=== PATIENT | female | born 1955 | race Caucasian/White ===

== ENCOUNTER 2020-02-20 12:45 | Emergency (ER) | payer MEDICARE ==
[~2020-02-20] VITALS: Ht 160 cm; Wt 88.2 kg
[~2020-02-20 12:45] MED LIST: ALBU2.5V5 IH; ALBU2.5V8 IH; ALPR0.5T PO; AMLO5TAB10 PO; ASPI-630 PO; ASPI81TA59 PO; ATOR20TA58 PO; BENZ-8 PO; CLON-276 PO; DICL100G18 TP; DILT180C29 PO; DILT300C23 PO; DULO60CA98 PO; FERR325T14 PO; FLUC100T7 PO; FLUT1DIS5 IH; FLUT9.9S NS; FOLI0.8T21 PO; FURO-68 PO; FURO40TA4 PO; FURO80TA3 PO; FURO80TA72 PO; GABA-586 PO; HYDR-2765 PO; HYDR-2769 PO; HYDR100T24 PO; INSU100I13 SQ; INSU100I17 SQ; IPRA3AMP29 IH; LIDO700A4 TP; LINA5TAB4 PO; LISI-338 PO; LORA10TA3 PO; METF100010 PO; METF500T16 PO; MORP-16 PO; NYST1000 TP; NYST60PO TP; OMEP20TA8 PO; PANT40TA6 PO; PHEN-318 PO; POLY17PO5 PO; POTA20TA12 PO; POTA40LI3 PO; PRED1TAB PO; PRED2.5T PO; QUET25TA5 PO; VALS160T3 PO; VANC1VIA3 MC; VANC2PLA IV; WARF2.5T2 PO; WARF5TAB2 PO; ZOLP10TA PO; ZOLP5TAB PO
[2020-02-20] MEDS ORDERED: IV NORMAL SALINE 1,000ML 1,000 ML IV SCH (12:48)
--- NOTE | 2020-02-20 12:53 | PHYS DOC ---
Past History Past Medical History: A-Fib, Anxiety, CHF, Constipation, COPD, Diabetes, GERD, Renal Disease, Other Past Surgical History: Cholecystectomy, Hysterectomy, Other Alcohol Use: None Drug Use: None Adult General Chief Complaint Chief Complaint: NEAR SYCOPE HPI HPI Patient is a 65-year-old female who presents for generalized malaise via EMS. Onset was within past 24 hours without any known travel, sick contact, concerning ingestion and/or trauma. noticed patient was more weak and lethargic than usual which concerned him prompting him to call EMS. On arrival to the scene, patient reported to EMS that she has had several episodes of vomiting and diarrhea in the past 48 hours with x1 episode this morning that had bright red blood in toilet. Patient was found to be hypotensive ~80/50s with remaining vitals unremarkable. IV access was obtained, 1 L normal saline bolus was initiated and patient was transported to our facility for further care. Of note, patient had similar presentation to this in 2016, with subsequently septic due to colitis and transferred to [facility], was subsequently intubated and coded. She remains a full code at this time Review of Systems Review of Systems Fourteen body systems of review of systems have been reviewed. See HPI for pertinent positives and negative responses, other hawkins all other systems are negative, non-pertinent or non-contributory Current Medications Current Medications Current Medications Medications (Trade) Dose Ordered Sig/Jake Start Time Stop Time Status Last Admin Dose Admin Sodium Chloride 1,000 ml @ 1,000 mls/hr Q1H 02/20/20 12:48 02/20/20 13:47 UNV Allergies Allergies Allergies Coded Allergies Type Severity Reaction Last Updated Verified Sulfa (Sulfonamide Antibiotics) Allergy Intermediate Hives 09/22/13 Yes exenatide Allergy Intermediate Hives 09/22/13 Yes meperidine Allergy Intermediate Nausea and Vomiting 09/22/13 Yes nickel Allergy Intermediate Hives 09/22/13 Yes Physical Exam Physical Exam Constitutional: Pt is oriented to person, place, and time. Pt appears well- developed and well-nourished. GCS 14 HENT: Head: Normocephalic and atraumatic. Mouth/Throat: Oropharynx is clear and moist. No hematomas or lacerations or abrasions to face or scalp OP clear, no blood, no malocclusion, dentition intact Nares clear, no nasal septal hematoma TMs clear, no hemotympanum Midface stable Eyes: Conjunctivae and EOM are normal. Pupils are equal, round, and reactive to light. Neck: C-spine midline nontender, no step-offs Cardiovascular: Normal rate, regular rhythm and normal heart sounds. Pulmonary/Chest: Effort normal and breath sounds normal. No respiratory distress. No wheezes. CTA bilaterally Abdominal: Soft. Bowel sounds are normal. Pt exhibits no distension. There is generalized tenderness, guarding present, no rebound, no peritoneal signs, nonacute/nonsurgical abdomen Musculoskeletal: No bony tenderness to extremities, no deformities, full ROM extremities Chest wall stable Pelvis stable and non-tender Rectal exam performed, anal sphincter intact, no external hemorrhoids, no palpable abnormalities in rectal vault, Hemoccult positive No vertebral TTP and spine without stepoffs Neurological: Pt is alert and oriented to person, place, and time. Moving all extremities willfully, able to wiggle all fingers and toes Alert and oriented x 3 but lethargic Sensation grossly intact Skin: Skin is warm and cool. No abrasions, no lacerations Psychiatric: Behavior is appropriate for situation Nursing note and vitals reviewed. Current Patient Data Vital Signs Vital Signs Date Time Temp Pulse Resp B/P (MAP) Pulse Ox O2 Delivery O2 Flow Rate FiO2 02/20/20 17:42 56 20 164/75 (104) 99 Nasal Cannula 2.0 02/20/20 16:28 98.0 Lab Results Laboratory Tests Test 02/20/20 13:00 02/20/20 13:23 02/20/20 14:13 02/20/20 16:00 White Blood Count 14.4 x10^3/uL (4.0-11.0) Red Blood Count 4.60 x10^6/uL (3.50-5.40) Hemoglobin 14.8 g/dL (12.0-15.5) Hematocrit 44.3 % (36.0-47.0) Mean Corpuscular Volume 96 fL (79-100) Mean Corpuscular Hemoglobin 32 pg (25-35) Mean Corpuscular Hemoglobin Concent 34 g/dL (31-37) Red Cell Distribution Width 13.2 % (11.5-14.5) Platelet Count 195 x10^3/uL (140-400) Neutrophils (%) (Auto) 78 % (31-73) Lymphocytes (%) (Auto) 16 % (24-48) Monocytes (%) (Auto) 5 % (0-9) Eosinophils (%) (Auto) 1 % (0-3) Basophils (%) (Auto) 0 % (0-3) Neutrophils # (Auto) 11.3 x10^3uL (1.8-7.7) Lymphocytes # (Auto) 2.3 x10^3/uL (1.0-4.8) Monocytes # (Auto) 0.7 x10^3/uL (0.0-1.1) Eosinophils # (Auto) 0.1 x10^3/uL (0.0-0.7) Basophils # (Auto) 0.1 x10^3/uL (0.0-0.2) Prothrombin Time 9.9 SEC (9.4-11.4) Prothromb Time International Ratio 1.0 (0.9-1.1) Activated Partial Thromboplast Time 23 SEC (23-33) Sodium Level 139 mmol/L (136-145) Potassium Level 3.8 mmol/L (3.5-5.1) Chloride Level 104 mmol/L (98-107) Carbon Dioxide Level 23 mmol/L (21-32) Anion Gap 12 (6-14) Blood Urea Nitrogen 22 mg/dL (7-20) Creatinine 1.3 mg/dL (0.6-1.0) Estimated GFR (Cockcroft-Gault) 41.0 BUN/Creatinine Ratio 17 (6-20) Glucose Level 197 mg/dL (70-99) Lactic Acid Level 2.3 mmol/L (0.4-2.0) 0.8 mmol/L (0.4-2.0) Calcium Level 10.0 mg/dL (8.5-10.1) Total Bilirubin 1.1 mg/dL (0.2-1.0) Aspartate Amino Transf (AST/SGOT) 19 U/L (15-37) Alanine Aminotransferase (ALT/SGPT) 21 U/L (14-59) Alkaline Phosphatase 138 U/L (46-116) Creatine Kinase 63 U/L (26-192) Troponin I Quantitative < 0.017 ng/mL (0-0.055) Total Protein 7.3 g/dL (6.4-8.2) Albumin 3.9 g/dL (3.4-5.0) Albumin/Globulin Ratio 1.1 (1.0-1.7) Lipase 4684 U/L (73-393) Thyroid Stimulating Hormone (TSH) 7.024 uIU/mL (0.358-3.740) Stool Occult Blood Positive (NEG) Urine Collection Type Unknown Urine Color Yellow Urine Clarity Hazy Urine pH 7.0 Urine Specific [place] 1.015 Urine Protein Neg (NEG-TRACE) Urine Glucose (UA) Neg mg/dL (NEG) Urine Ketones (Stick) Neg mg/dL (NEG) Urine Blood Trace (NEG) Urine Nitrite Neg (NEG) Urine Bilirubin Neg (NEG) Urine Urobilinogen Dipstick 0.2 mg/dL (0.2 mg/dL) Urine Leukocyte Esterase Neg (NEG) Urine RBC 1-2 /HPF (0-2) Urine WBC Occ /HPF (0-4) Urine Squamous Epithelial Cells Few /LPF Urine Bacteria 0 /HPF (0-FEW) Urine Hyaline Casts Occ /HPF Urine Mucus Slight /LPF Urine Opiates Screen Neg (NEG) Urine Methadone Screen Neg (NEG) Urine Barbiturates Neg (NEG) Urine Phencyclidine Screen Neg (NEG) Urine Amphetamine/Methamphetamine Neg (NEG) Urine Benzodiazepines Screen Pos (NEG) Urine Cocaine Screen Neg (NEG) Urine Cannabinoids Screen Neg (NEG) Urine Ethyl Alcohol Neg (NEG) EKG EKG EKG ordered and interpreted by myself at 1252 hrs. as sinus bradycardia at 50 bpm, intervals unremarkable except for prolonged QTC 563, no axis deviation, no acute ischemic findings, no STEMI Radiology/Procedures Radiology/Procedures PROCEDURE: KUB Single view chest and single view abdomen dated 02/20/2020. Comparison made to 05/20/2016. CLINICAL INDICATION: Pain. FINDINGS: Single upright view of the chest shows stable heart and mediastinal contours. Lungs are clear. No consolidation or pleural effusion. There is some mild asymmetric fullness of the right hilum, unchanged. No pneumothorax. 2 supine images of the abdomen show a posterior gas throughout. No abnormal calcification. Clips in the right upper quadrant compatible with prior cholecystectomy. IMPRESSION: 1. No acute radiographic abnormality. Stable appearance of chest compared to 05/20/2016. 2. Nonspecific bowel gas pattern. Electronically signed by: Khang Alva MD (02/20/2020 1:31 PM) [id number] PROCEDURE: CT ABD PELV W/ IV CONTRST ONLY Study: CT abdomen/pelvis with intravenous contrast Indication: Abdominal pain. Comparison: 09/23/2013 Technique: Helical CT imaging performed of the abdomen and pelvis after the intravenous administration of 75 cc Omnipaque 300 contrast. Sagittal and coronal reformats were obtained. One or more of the following individualized dose reduction techniques were utilized for this examination: 1. Automated exposure control 2. Adjustment of the mA and/or kV according to patient size 3. Use of iterative reconstruction technique. Findings: Chest: Small hiatal hernia with some suture material above the diaphragm in the setting of bariatric surgery. Mitral annular mineralization. Right coronary artery calcific atherosclerosis. Liver: Unremarkable. Gallbladder/Biliary Tree: Surgically absent. Pancreas: No discrete mass or findings of acute pancreatitis. Spleen: Normal in size. Adrenal Glands: Unremarkable. Kidneys/Ureters/Bladder: No complex cyst or mass. Symmetric renal size and enhancement. No hydronephrosis. Collapsed urinary bladder around a Lucia catheter. Reproductive Organs: Absent uterus. No adnexal mass. Colon: Circumferential edematous colonic wall thickening most notably from the mid descending aspect through much of the sigmoid colon. Surrounding edema. No pneumatosis, obstruction or perforation. Fluid scattered throughout the colon in keeping with a diarrheal state. A few short segments of colonic wall thickening favored on account of physiologic collapse. Appendix: No inflammatory changes at its expected location. Small Bowel: Within normal limits. Stomach: Previous bariatric surgery. Otherwise unremarkable. Vasculature: Aortobiiliac calcific atherosclerosis. Involvement of the aortic branch vessels as well. There is a degree of ostial stenosis at the aortic branch vessel origins though difficult to fully characterize by technique. Contrast enhancement is seen within these vessels more distally and there is no proximal occlusion. Unremarkable portal veins and superior mesenteric vein. Lymph Nodes: Within normal limits. Peritoneum and Body Wall: As above, inflammatory changes surrounding the abnormal distal colon. No pneumoperitoneum. Fat-containing umbilical hernia. Partially mineralized soft tissue abnormality dorsal to the right aspect of the sacrum favored an area of fat necrosis.. Bones: Osteopenia. A few chronic rib fractures on the right. Scattered degenerative changes such as at the lower lumbar spine with grade 1 anterolisthesis of L3 on L4 and L4 on L5. Transitional lumbosacral anatomy. 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 Only mild articular surface flattening overlying the avascular necrosis on the left. Miscellaneous: None. Impression: 1. Edematous colonic wall thickening from the mid descending colon through much of the sigmoid colon with relative sparing of the lower rectum. Surrounding inflammation but there is no pneumatosis, obstruction or perforation. The findings are compatible with a colitis favored infectious or inflammatory as opposed to ischemic given the distribution. Diarrheal state with fluid throughout the colon. 2. Several chronic findings as detailed in the body of the report. Electronically signed by: CHARLIE DUKE MD (02/20/2020 3:16 PM) [id number] Course & Med Decision Making Course & Med Decision Making Patient seen on immediate ER arrival via EMS Airway patent, breathing unlabored, vitals remarkable for marked hypotension ~80/50 and rectal temp of 93.8 on arrival. X2 large-bore IVs obtained Comprehensive history and physical exam performed in addition to thorough chart review, subsequent diagnostic studies ordered A total of 3 L IV normal saline administered with initial increase in patient's blood pressure, this was transient and patient ended up having to start low-dose Levophed to keep MAP >65 1 g IV ceftriaxone, 500 mg Flagyl, and 80 mg IV Protonix administered. This was to cover potential GI bleed and subsequently found colitis Initial attempt was made to place central venous line and right internal jugular vein but this was unsuccessful. We have no sterile ultrasound probe covers to use ultrasound which is standard of care. Central venous access deferred Patient case reviewed with PCP, Dr. King, and joint decision between us to transfer out to [facility], the place at which patient was previously admitted and where her currently established GI physician is located I discussed need for continued medical management and need to transfer to higher acuity of care with more specialists present such as GI and patient was agreeable to transportation [facility] was called and case was discussed with Dr. Jean who accepted patient under his care. I discussed my concern for sepsis secondary to colitis, pancreatitis diagnosis given generalized abdominal pain and elevated lipase, Hemoccult positive patient, and hypothermia Patient reassessed numerous times throughout ER visit, lethargy much improved since arrival. Patient continuing to have vague abdominal pains but vastly improved since arrival. Discussed need for likely central line placement at outlying facility if she continues to need vasopressor support At this time patient has been on Levophed for <4 hours at low-dose but continued use will likely require need for more central access Dragon Disclaimer Dragon Disclaimer This electronic medical record was generated, in whole or in part, using a voice recognition dictation system. Date and Time of Assessment Date: Feb 20, 2020 Time: 14:00 Vital Signs Vital Signs Vital Signs Date Time Temp Pulse Resp B/P (MAP) Pulse Ox O2 Delivery O2 Flow Rate FiO2 02/20/20 17:42 56 20 164/75 (104) 99 Nasal Cannula 2.0 02/20/20 16:28 98.0 Respirations Respiratory Effort: Normal Respiratory Pattern: Normal Cardiovascular Pulse Rhythm: Regular (Bradycardic) HEART: No murmurs noted Lung Sounds Breath Sounds: Clear Capillary Refill Capillary Refill: Rt Foot < 3 seconds Peripheral Pulse Pulse Location: Radial Pulse Strength: Weak (1+) Pulse Assessment Method: Palpation Integumentary Skin: Dry, Cool Skin Moisture: Dry Skin Turgor: Normal Skin Color: dry, pallor Fingernail Color: WNL Central Line Placement Proc Central Line Indication: Requiring vasopressors Consent: Medical necessity, verbal consent obtained Procedure: The patient was positioned appropriately and the skin over the right IJ was prepped and cleaned per protocol. Local anesthesia was administered using a total of 5 mL 1% lidocaine. A large bore needle was used to identify the vein but due to lack of ultrasound cover probe, this was done blindly by palpation. Several attempts were made at finding vein to place central line; however, attempts were unsuccessful. Procedure was terminated due to multiple failed attempts. There will be no repeat due to lack of sterile ultrasound use. The patient tolerated the procedure well without any immediate complications. Post procedure x-ray performed, no pneumothorax Departure Departure: Impression: Primary Impression: Sepsis Additional Impressions: Colitis Pancreatitis Hypothermia Disposition: 05 TRANSFER OTHER ([facility]) Admitting Physician: Other (DR JEAN) Condition: STABLE Referrals: REDD KING MD (PCP) Justification of Admission: Justification of Admission: Justification of Admission Dx: Yes (SEPSIS, COLITIS) Problem Qualifiers TOBI HESTER DO Feb 20, 2020 12:53
[2020-02-20] MEDS ORDERED: PANTOPRAZOLE IV 40 MG VIAL. IVP ONE (13:00)
--- NOTE | 2020-02-20 13:10 | EKG ---
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
[2020-02-20] MEDS ORDERED: cefTRIAXone SODIUM 1 GM VIAL ONE (13:16)
[2020-02-20] MEDS ORDERED: IV NORMAL SALINE 50ML 50 ML ONE (13:16)
[2020-02-20 13:29] LABS: BASO # 0.1 x10^3/uL (0.0-0.2); BASO % 0 % (0-3); EOS # 0.1 x10^3/uL (0.0-0.7); EOS % 1 % (0-3); HEMATOCRIT 44.3 % (36.0-47.0); HEMOGLOBIN 14.8 g/dL (12.0-15.5); LYMPH # 2.3 x10^3/uL (1.0-4.8); LYMPH % 16 % (24-48); MEAN CORPUSCULAR HEMOGLOBIN 32 pg (25-35); MEAN CORPUSCULAR HGB CONC 34 g/dL (31-37); MEAN CORPUSCULAR VOLUME 96 fL (79-100); MONO # 0.7 x10^3/uL (0.0-1.1); MONO % 5 % (0-9); NEUT # 11.3 x10^3uL (1.8-7.7); NEUT % 78 % (31-73); PLATELET COUNT 195 x10^3/uL (140-400); RED CELL DISTRIBUTION WIDTH 13.2 % (11.5-14.5); WHITE BLOOD COUNT 14.4 x10^3/uL (4.0-11.0)
--- NOTE | 2020-02-20 13:33 | RAD ---
Single view chest and single view abdomen dated 02/20/2020. Comparison made to 05/20/2016. CLINICAL INDICATION: Pain. FINDINGS: Single upright view of the chest shows stable heart and mediastinal contours. Lungs are clear. No consolidation or pleural effusion. There is some mild asymmetric fullness of the right hilum, unchanged. No pneumothorax. 2 supine images of the abdomen show a posterior gas throughout. No abnormal calcification. Clips in the right upper quadrant compatible with prior cholecystectomy. IMPRESSION: 1. No acute radiographic abnormality. Stable appearance of chest compared to 05/20/2016. 2. Nonspecific bowel gas pattern. Electronically signed by: Khang Alva MD (02/20/2020 1:31 PM) [id number]
[2020-02-20 13:41] LABS: CREATININE 1.3 mg/dL (0.6-1.0); POTASSIUM 3.8 mmol/L (3.5-5.1)
[2020-02-20] MEDS ORDERED: IV NORMAL SALINE 1,000ML 1,000 ML IV ONE ×2 (13:45→14:00)
[2020-02-20 13:47] LABS: FECAL OB PT POSITIVE (NEG)
[2020-02-20 13:53] LABS: ALBUMIN 3.9 g/dL (3.4-5.0); ALBUMIN/GLOBULIN RATIO 1.1 (1.0-1.7); TOTAL BILIRUBIN 1.1 mg/dL (0.2-1.0); TOTAL PROTEIN 7.3 g/dL (6.4-8.2)
[2020-02-20] MEDS ORDERED: NOREPINEPHRINE BITARTRATE 4 MG/4 ML VIAL. IV ONE (13:54)
[2020-02-20] MEDS ORDERED: IV NORMAL SALINE 250ML 250 ML ONE (13:54)
[2020-02-20] MEDS ORDERED: NOREPINEPHRINE BITARTRATE 8 MG in IV DEXTROSE 5% 250 ML IV PRN (14:00)
[2020-02-20] MEDS ORDERED: IOHEXOL 300 MG/ML 75 ML VIAL. IV ONE (14:15)
[2020-02-20 14:58] LABS: BARBITURATES NEG (NEG); BENZODIAZEPINES POS (NEG); CANNABINOIDS NEG (NEG); COCAINE NEG (NEG); METHADONE NEG (NEG); OPIATES NEG (NEG); PHENCYCLIDINE NEG (NEG)
[2020-02-20 15:11] LABS: AMPHETAMINE/METHAMPHETAMINE NEG (NEG)
[2020-02-20 15:14] LABS: BACTERIA,URINE 0 /HPF (0-FEW); BILIRUBIN,URINE NEG (NEG); CLARITY,URINE HAZY; COLOR,URINE YELLOW; GLUCOSE,URINE NEG (NEG); NITRITE,URINE NEG (NEG); SQUAMOUS EPITHELIAL CELL,UR FEW /LPF; UROBILINOGEN,URINE 0.2 mg/dL (0.2 mg/dL); WBC,URINE OCC /HPF (0-4)
[2020-02-20 15:15] LABS: HYALINE CASTS, URINE OCC /HPF
--- NOTE | 2020-02-20 15:19 | RAD ---
Study: CT abdomen/pelvis with intravenous contrast Indication: Abdominal pain. Comparison: 09/23/2013 Technique: Helical CT imaging performed of the abdomen and pelvis after the intravenous administration of 75 cc Omnipaque 300 contrast. Sagittal and coronal reformats were obtained. One or more of the following individualized dose reduction techniques were utilized for this examination: 1. Automated exposure control 2. Adjustment of the mA and/or kV according to patient size 3. Use of iterative reconstruction technique. Findings: Chest: Small hiatal hernia with some suture material above the diaphragm in the setting of bariatric surgery. Mitral annular mineralization. Right coronary artery calcific atherosclerosis. Liver: Unremarkable. Gallbladder/Biliary Tree: Surgically absent. Pancreas: No discrete mass or findings of acute pancreatitis. Spleen: Normal in size. Adrenal Glands: Unremarkable. Kidneys/Ureters/Bladder: No complex cyst or mass. Symmetric renal size and enhancement. No hydronephrosis. Collapsed urinary bladder around a Lucia catheter. Reproductive Organs: Absent uterus. No adnexal mass. Colon: Circumferential edematous colonic wall thickening most notably from the mid descending aspect through much of the sigmoid colon. Surrounding edema. No pneumatosis, obstruction or perforation. Fluid scattered throughout the colon in keeping with a diarrheal state. A few short segments of colonic wall thickening favored on account of physiologic collapse. Appendix: No inflammatory changes at its expected location. Small Bowel: Within normal limits. Stomach: Previous bariatric surgery. Otherwise unremarkable. Vasculature: Aortobiiliac calcific atherosclerosis. Involvement of the aortic branch vessels as well. There is a degree of ostial stenosis at the aortic branch vessel origins though difficult to fully characterize by technique. Contrast enhancement is seen within these vessels more distally and there is no proximal occlusion. Unremarkable portal veins and superior mesenteric vein. Lymph Nodes: Within normal limits. Peritoneum and Body Wall: As above, inflammatory changes surrounding the abnormal distal colon. No pneumoperitoneum. Fat-containing umbilical hernia. Partially mineralized soft tissue abnormality dorsal to the right aspect of the sacrum favored an area of fat necrosis.. Bones: Osteopenia. A few chronic rib fractures on the right. Scattered degenerative changes such as at the lower lumbar spine with grade 1 anterolisthesis of L3 on L4 and L4 on L5. Transitional lumbosacral anatomy. 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 Only mild articular surface flattening overlying the avascular necrosis on the left. Miscellaneous: None. Impression: 1. Edematous colonic wall thickening from the mid descending colon through much of the sigmoid colon with relative sparing of the lower rectum. Surrounding inflammation but there is no pneumatosis, obstruction or perforation. The findings are compatible with a colitis favored infectious or inflammatory as opposed to ischemic given the distribution. Diarrheal state with fluid throughout the colon. 2. Several chronic findings as detailed in the body of the report. Electronically signed by: CHARLIE DUKE MD (02/20/2020 3:16 PM) [id number]
--- NOTE | 2020-02-20 17:33 | RAD ---
Exam: Chest one view INDICATION: IJ central line attempt TECHNIQUE: Frontal view of the chest Comparisons: None FINDINGS: The cardiomediastinal silhouette and pulmonary vessels are within normal limits. The lung and pleural spaces are clear. No pneumothorax. IMPRESSION: No acute cardiopulmonary process. Electronically signed by: Cheyenne Parks MD (02/20/2020 5:30 PM) [id number]
[2020-02-20] MEDS ORDERED: IV NORMAL SALINE 500ML 500 ML IV ONE (17:45)
[2020-02-20 18:16] VITALS: BP 165/71
== END 2020-02-20 18:35 | disposition short-term general hospital (02) ==
LOC: ER 12:45
DX: A41.9 Sepsis, unspecified organism (principal); T68.XXXA Hypothermia, initial encounter; K52.9 Noninfective gastroenteritis and colitis, unspecified; K85.90 Acute pancreatitis without necrosis or infection, unspecified; I48.91 Unspecified atrial fibrillation; F41.9 Anxiety disorder, unspecified; I50.9 Heart failure, unspecified; J44.9 Chronic obstructive pulmonary disease, unspecified; E11.9 Type 2 diabetes mellitus without complications; K21.9 Gastro-esophageal reflux disease without esophagitis; Z88.2 Allergy status to sulfonamides; Z88.8 Allergy status to other drugs, medicaments and biological substances
CPT/HCPCS: 36415; 36556; 71045; 74018; 74177; 80053; 80307; 81001; 82274; 82550; 83605; 83690; 84443; 84484; 85025; 85610; 85730; 87040; 93005; 96361; 96365; 96366; 96375; 99285; C9113; J0696; J3490; J7030; J7040; Q9967

== ENCOUNTER → 2021-06-01 | Outpatient (CLI) | payer MEDICARE, MEDICAID ==
[~2021-06-01] MED LIST changes: +AMLO-186 PO; -AMLO5TAB10 PO; -LISI-338 PO; +LISI5TAB15 PO; -VANC1VIA3 MC; +VANC1VIA37 MC
[2021-06-01 19:38] LABS: BASO % 0 % (0-3); EOS % 1 % (0-3); HEMATOCRIT 39.8 % (36.0-47.0); HEMOGLOBIN 13.4 g/dL (12.0-15.5); LYMPH # 1.8 x10^3/uL (1.0-4.8); LYMPH % 25 % (24-48); MEAN CORPUSCULAR HEMOGLOBIN 33 pg (25-35); MEAN CORPUSCULAR HGB CONC 34 g/dL (31-37); MEAN CORPUSCULAR VOLUME 97 fL (79-100); MONO # 0.7 x10^3/uL (0.0-1.1); MONO % 9 % (0-9); NEUT # 4.7 x10^3uL (1.8-7.7); NEUT % 65 % (31-73); PLATELET COUNT 165 x10^3/uL (140-400); RED BLOOD COUNT 4.09 x10^6/uL (3.50-5.40); WHITE BLOOD COUNT 7.3 x10^3/uL (4.0-11.0)
[2021-06-01 19:45] LABS: ALBUMIN 3.9 g/dL (3.4-5.0); ALBUMIN/GLOBULIN RATIO 1.2 (1.0-1.7); CALCIUM 8.9 mg/dL (8.5-10.1); CREATININE 0.8 mg/dL (0.6-1.0); GFR 71.5; TOTAL BILIRUBIN 0.7 mg/dL (0.2-1.0); TOTAL PROTEIN 7.2 g/dL (6.4-8.2)
[2021-06-02 11:43] LABS: FREE T4 1.17 ng/dL (0.76-1.46); THYROID STIM HORMONE (TSH) 2.977 uIU/mL (0.358-3.740)
[2021-06-03 03:14] LABS: HEMOGLOBIN A1C 4.3 % (4.8-5.6)
== END ==
LOC: LAB 17:48
PROVIDERS: ATTEND Family Medicine
DX: R19.03 Right lower quadrant abdominal swelling, mass and lump (principal); R10.32 Left lower quadrant pain; N39.0 Urinary tract infection, site not specified; R73.9 Hyperglycemia, unspecified; E03.8 Other specified hypothyroidism
CPT/HCPCS: 80053; 83036; 84439; 84443; 85025

== ENCOUNTER 2021-06-07 10:54 | Emergency (ER) | payer MEDICARE, MEDICAID ==
[2021-06-07] MEDS ORDERED: FAMOTIDINE 20 MG/2 ML VIAL IVP ONE (12:00)
[2021-06-07] MEDS ORDERED: MORPHINE SULFATE 4 MG/ML DISP.SYRIN. IV ONE (12:00)
[2021-06-07] MEDS ORDERED: IV NORMAL SALINE 1,000ML 1,000 ML IV SCH (12:00)
[2021-06-07] MEDS ORDERED: ONDANSETRON PF 4 MG/2 ML VIAL. IVP ONE (12:00)
[2021-06-07] MEDS ORDERED: ONDANSETRON PF 4 MG/2 ML VIAL. ONE (12:17)
[2021-06-07] MEDS ORDERED: FAMOTIDINE 20 MG/2 ML VIAL ONE (12:17)
[2021-06-07] MEDS ORDERED: MORPHINE SULFATE 4 MG/ML DISP.SYRIN. ONE ×2 (12:17→14:41)
[2021-06-07 13:07] LABS: BASO # 0.1 x10^3/uL (0.0-0.2); BASO % 1 % (0-3); EOS # 0.2 x10^3/uL (0.0-0.7); EOS % 2 % (0-3); HEMATOCRIT 38.3 % (36.0-47.0); HEMOGLOBIN 13.2 g/dL (12.0-15.5); LYMPH # 1.7 x10^3/uL (1.0-4.8); LYMPH % 18 % (24-48); MEAN CORPUSCULAR HEMOGLOBIN 33 pg (25-35); MEAN CORPUSCULAR HGB CONC 34 g/dL (31-37); MEAN CORPUSCULAR VOLUME 95 fL (79-100); MONO # 1.1 x10^3/uL (0.0-1.1); MONO % 12 % (0-9); NEUT # 6.2 x10^3uL (1.8-7.7); NEUT % 68 % (31-73); PLATELET COUNT 145 x10^3/uL (140-400); RED BLOOD COUNT 4.04 x10^6/uL (3.50-5.40); RED CELL DISTRIBUTION WIDTH 13.5 % (11.5-14.5); WHITE BLOOD COUNT 9.2 x10^3/uL (4.0-11.0)
[2021-06-07 13:11] LABS: ALBUMIN 3.5 g/dL (3.4-5.0); ALBUMIN/GLOBULIN RATIO 1.2 (1.0-1.7); CALCIUM 8.5 mg/dL (8.5-10.1); POTASSIUM 3.5 mmol/L (3.5-5.1); TOTAL BILIRUBIN 0.8 mg/dL (0.2-1.0); TOTAL PROTEIN 6.4 g/dL (6.4-8.2)
[2021-06-07 13:12] LABS: CREATININE 0.5 mg/dL (0.6-1.0); GFR 123.1
[2021-06-07] MEDS ORDERED: IOHEXOL 350 MG/ML 100 ML VIAL. ONE (13:23)
[2021-06-07 14:39] LABS: BILIRUBIN,URINE SMALL (NEG); CLARITY,URINE CLEAR; COLOR,URINE YELLOW; GLUCOSE,URINE NEG (NEG); NITRITE,URINE NEG (NEG); UROBILINOGEN,URINE 0.2 mg/dL (0.2 mg/dL)
[2021-06-07 14:40] LABS: BACTERIA,URINE FEW /HPF (0-FEW); SQUAMOUS EPITHELIAL CELL,UR FEW /LPF
--- NOTE | 2021-06-07 15:07 | RAD ---
INDICATION: Reason: ABD PAIN / Spl. Instructions: OMNI 350 60 ML / History: COMPARISON: February 2020 TECHNIQUE: Axial CT images were obtained through the abdomen and pelvis with intravenous contrast. One or more of the following individualized dose reduction techniques were utilized for this examinat ion: 1. Automated exposure control; 2. Adjustment of the mA and/or kV according to patient size; 3 . Use of iterative reconstruction technique. FINDINGS: Linear opacities at the lung bases could be from scarring or atelectasis. Vascular: Severe atherosclerotic disease. Mitral annulus calcification. Coronary artery calcification . Hepatobiliary: Postcholecystectomy with prominence of the biliary tree which is commonly seen postope ratively. Pancreas: No peripancreatic edema. Spleen: Mildly prominent Renal/Bladder: No hydronephrosis. There are some tiny low-density renal lesions which are a common fi nding but too small to characterize. Gastrointestinal: There is some free fluid within the pelvis. Wall thickening of sigmoid colon with s ome adjacent edema to the fat. Portions of the colon appear dilated with air and stool. there is a s ubcutaneous calcified masslike structure identified measuring approximately 38 x 24 mm. Post gastric bypass changes. Degenerative changes of the spine with mild scoliotic curvature and multilevel central canal and neur al foraminal stenosis. There is sclerosis at the bilateral femoral heads. IMPRESSION: * Wall thickening of the distal colon with adjacent edema to the fat as well as free fluid. Would c orrelate for possible causes such as colitis or diverticulitis. Follow-up could be obtained to ensure this resolves to exclude any residual colon mass. * Dilatation of portions of the colon with gas and stool. * Masslike structure in the subcutaneous soft tissues overlying the right side of the sacrum. Causes such as fat necrosis or chronic partially calcified mass are within the differential. * Sclerosis at the femoral heads which can be seen with avascular necrosis. Electronically signed by: Devang Connelly MD (06/07/2021 3:05 PM) [id number]
[2021-06-07] MEDS ORDERED: CONTRAST GIVEN. MC PRN (15:45)
== END 2021-06-07 16:00 | disposition home or self-care (01) ==
LOC: ER 10:54
DX: K57.92 Diverticulitis of intestine, part unspecified, without perforation or abscess without bleeding (principal); K59.00 Constipation, unspecified; J44.9 Chronic obstructive pulmonary disease, unspecified; I11.0 Hypertensive heart disease with heart failure; I50.9 Heart failure, unspecified; I48.91 Unspecified atrial fibrillation; Z90.89 Acquired absence of other organs; Z90.49 Acquired absence of other specified parts of digestive tract; Z90.710 Acquired absence of both cervix and uterus
CPT/HCPCS: 36415; 74177; 80053; 81001; 83690; 85025; 96361; 96374; 96375; 96376; 99285